=== PATIENT | female | born 1980 ===

== ENCOUNTER → 2018-01-10 | Outpatient (CLI) | payer OTHER | END | disposition home or self-care (01) | LOC: RX STUDY 09:41 | DX: N39.0 Urinary tract infection, site not specified (principal) ==

== ENCOUNTER 2018-01-11 09:38 | Outpatient (CLI) | payer OTHER | END 2018-01-11 17:00 | disposition home or self-care (01) | LOC: SONOGRAMA 09:38 | DX: N83.201 Unspecified ovarian cyst, right side (principal) ==

== ENCOUNTER 2025-08-17 06:00 | Day surgery (SDC) | payer OTHER ==
[2025-08-15 09:21] VITALS: BP 111/79
[2025-08-15 11:04] LABS: COVID-19 AG NEGATIVE (NEGATIVE)
[~2025-08-17] VITALS: Ht 157.5 cm; Wt 59.0 kg
[2025-08-17] MEDS ORDERED: CIPROFLOXACIN IN 5 % DEXTROSE 400 MG/200 ML PIGGYBAG IV ONE (07:03)
[2025-08-17] MEDS ORDERED: EPINEPHRINE HCL/PF 1 MG/ML AMPUL ONE (07:13)
[2025-08-17] MEDS ORDERED: POVIDONE-IODINE SCRUB 118 ML BOTT TOP ONE (07:14)
[2025-08-17] MEDS ORDERED: POVIDONE-IODINE 118 ML BOTT TOP ONE (07:14)
[2025-08-17] MEDS ORDERED: BUPIVACAINE HCL/MPF 0.5% 30ML VIAL ONE (07:14)
[2025-08-17] MEDS ORDERED: TRANEXAMIC ACID 100MG/1ML (1000MG) AMPUL ONE (07:15)
[2025-08-17] MEDS ORDERED: GENTAMICIN SULFATE 40 MG/ML VIAL ONE (09:08)
[2025-08-17] MEDS ORDERED: VANCOMYCIN HCL 1,000 MG VIAL ONE (09:09)
[2025-08-17] MEDS ORDERED: VANCOMYCIN HCL 1,000 MG VIAL IR ONE (10:00)
[2025-08-17] MEDS ORDERED: GENTAMICIN SULFATE 40 MG/ML VIAL IR ONE (10:00)
[2025-08-17] MEDS ORDERED: SUGAMMADEX SODIUM 200 MG/2 ML VIAL IV ONE (11:18)
== END 2025-08-17 15:30 | disposition home or self-care (01) ==
LOC: CIR.AMB 06:00
PROVIDERS: ATTEND Surgery
DX: D05.11 Intraductal carcinoma in situ of right breast (principal); D48.62 Neoplasm of uncertain behavior of left breast; N65.0 Deformity of reconstructed breast; N64.81 Ptosis of breast; R59.0 Localized enlarged lymph nodes; N60.82 Other benign mammary dysplasias of left breast